=== PATIENT | male | born 1990 | race Caucasian/White ===

== ENCOUNTER 2022-10-09 11:05 | Emergency (ER) | payer BC ==
[2022-10-09 11:42] LABS: #Basophils 0.1 thou/uL (0.0-0.2); #Eosinphils 0.2 thou/uL (0.0-0.7); #Lymphocytes 2.2 thou/uL (1.20-3.40); #Monocytes 1.1 thou/uL (0.11-0.59); #Neutrophils 13.6 thou/uL (1.40-6.50); %Basophils 0.5 % (0.0-1.0); %Eosinophils 1.2 % (0.0-10.0); %Lymphocytes 12.9 % (21.0-51.0); %Monocytes 6.6 % (0.0-10.0); %Neutrophils 78.8 % (42.0-75.0); Hemoglobin 13.4 g/dL (14.0-18.0); Mean Corpuscular HGB CONC 34.4 g/dL (32.0-36.0); Mean Corpuscular Hemoglobin 30.9 pg (27.0-31.0); Mean Corpuscular Volume 89.8 fl (78.0-98.0); Mean Platelet Volume 5.5 fL (7.4-10.4); Platelet Count 687 10x3/uL (130-400); RBC Distribution Width 11.6 % (11.5-14.5); Red Blood Cell (RBC) Count 4.33 mill/uL (4.70-6.10); White Blood Cell (WBC) Count 17.3 10x3/uL (4.8-10.8)
[2022-10-09 11:58] LABS: ALT (SGPT) 14 U/L (8-55); AST (SGOT) 7 U/L (5-34); Albumin 3.6 g/dL (3.5-5.0); Alkaline Phosphatase 102 U/L (40-110); Anion Gap 16 mmol/L (10-20); BUN (Urea Nitrogen) 12 mg/dL (8.9-20.6); Bilirubin, Total 0.6 mg/dL (0.2-1.2); Calc. Creatinine Clearance 0 mL/min (70-130); Carbon Dioxide 24 mmol/L (22-29); Chloride 103 mmol/L (98-107); Estimated GFR 117; Globulin 3.8 g/dL (2.4-3.5); Glucose 99 mg/dL (70-105); Protein, Total 7.4 g/dL (6.0-8.3); Sodium 139 mmol/L (136-145)
[2022-10-09 12:16] LABS: Bilirubin Small (Negative); Blood, Urine Negative (Negative); Clarity Slightly Cloudy (Clear); Glucose, Urine (Dipstick) Negative (Negative); Ketone, Urine 15 mg/dL (Negative); Leukocyte Negative (Negative); Nitrite Negative (Negative); Protein, Urine (Dipstick) Trace mg/dL (Neg-Trace); Specific Gravity, Urine 1.025 (1.005-1.030); Urobilinogen 0.2 mg/dL (Less than 2)
[2022-10-09] MEDS ORDERED: Piperacillin/Tazobactam 4.5 GM VIAL ONE (13:51)
[2022-10-09] MEDS ORDERED: Sodium Chloride 0.9% 100 ML ONE (13:52)
[2022-10-09] MEDS ORDERED: Iopamidol 370 76% 100 ML VIAL ONE (15:21)
== END 2022-10-09 15:20 | disposition short-term general hospital (02) ==
LOC: BURERS 11:05
DX: K50.913 Crohn's disease, unspecified, with fistula (principal); R18.8 Other ascites
CPT/HCPCS: 74177; 80053; 81003; 85025; 96365; J2543; J3490; Q9967